=== PATIENT | male | born 1930 | race Caucasian/White ===

== ENCOUNTER → 2019-03-22 | Outpatient (CLI) | payer MEDICARE, MEDICAID ==
--- NOTE | 2019-03-22 14:59 | RAD ---
CT chest without contrast HISTORY: Right upper lobe nodule TECHNIQUE: Computed tomographic imaging of the chest was performed without IV contrast COMPARISON: None FINDINGS: Heterogeneous focus the right lobe of the thyroid Bilateral hilar fullness is suspicious for prominent hilar lymphadenopathy left greater than right. There are also mediastinal lymph nodes greater than 10 mm present. No significant effusions. There is prominent motion artifact moderately severe degrading imaging. There is a pleural-based mass in the right upper lobe measuring roughly 25 mm x 10 mm. Is also infiltrate or mass pleural-based in the left lower lobe image #139 measures 11 mm. And a pleural-based mass in the right lower lobe measuring 22 mm on image 203. Visualized upper abdominal organs unremarkable. Present L1 compression fracture of uncertain age. There is a heavily sclerotic compression fracture T8 IMPRESSION: Right lobe thyroid nodule further assessment with ultrasound recommended Moderately severe motion artifact degrades evaluation. There are multiple pleural-based masses or focal consolidations malignancy or pneumonitis are considerations. Follow-up CT in one month is recommended. Mediastinal and hilar lymphadenopathy may be reactive in nature but malignant lymphadenopathy is not excluded. Sclerotic T8 compression fracture could reflect chronic bland compression fracture. A pathologic compression fracture is not excluded and MRI thoracic spine with and without gadolinium is recommended for clarification. Electronically signed by: Camron Chacko MD (03/22/2019 2:56 PM) [id number]
== END | disposition home or self-care (01) ==
LOC: CT 10:59
PROVIDERS: ATTEND Internal Medicine Geriatric Medicine
DX: R91.1 Solitary pulmonary nodule (principal); M48.56XA Collapsed vertebra, not elsewhere classified, lumbar region, initial encounter for fracture; R59.0 Localized enlarged lymph nodes; E04.1 Nontoxic single thyroid nodule; K21.9 Gastro-esophageal reflux disease without esophagitis; E55.9 Vitamin D deficiency, unspecified; I10 Essential (primary) hypertension
CPT/HCPCS: 71250